=== PATIENT | male | born 1985 | race Caucasian/White ===

== ENCOUNTER 2019-01-25 18:47 | Emergency (ER) | payer MEDICAID ==
[2019-01-25] MEDS ORDERED: Sodium Chloride 0.9% 10 ML Syringe FLUSH PRN (19:23)
[2019-01-25] MEDS ORDERED: Ondansetron 4 MG/2 ML SDV IVPUSH ONE (19:23)
[2019-01-25] MEDS ORDERED: Sodium Chloride 0.9% 1,000 ML IV ONE (19:23)
--- NOTE | 2019-01-25 19:31 | EDM.PDOC ---
ED HPI GENERAL MEDICAL PROBLEM - General Chief Complaint: Abdominal Pain Stated Complaint: Abodominal Pain Time Seen by Provider: 01/25/19 19:16 Source of Information: Reports: Patient History Limitations: Reports: No Limitations - History of Present Illness INITIAL COMMENTS - FREE TEXT/NARRATIVE: Patient comes in with reports of pain to his abdomen for the last 2 hours. He refers to it as sharp and stabbing pain to the mid abdomen. He does state he has a history of constipation. He denies nausea or vomiting. He reports blood in his stool but is not sure if this was from hemorrhoids or not. Medical history includes hepatitis C, meth and heroin use. He has been clean since 2017 per his report and states he does not want to have any narcotics. He does smoke 1 PPD and a bowl of marijuana before bed at night. Denies chest pain, headache, confusion, no shortness of breath. Denies any urinary symptoms. He denies recent illness or chills. He did state he had several bowel movements. Onset: Today, Sudden Duration: Intermittent Location: Reports: Abdomen Quality: Reports: Sharp, Stabbing Worsens with: Reports: Movement Associated Symptoms: Reports: No Other Symptoms - Related Data Allergies Allergy/AdvReac Type Severity Reaction Status Date / Time No Known Allergies Allergy Verified 01/25/19 19:13 Home Meds: Home Meds . [No Known Home Meds] 01/25/19 [History] ED ROS GENERAL - Review of Systems Review Of Systems: See Below Constitutional: Reports: No Symptoms HEENT: Reports: No Symptoms Respiratory: Reports: No Symptoms Cardiovascular: Reports: No Symptoms Endocrine: Reports: No Symptoms GI/Abdominal: Reports: Abdominal Pain : Reports: No Symptoms Musculoskeletal: Reports: No Symptoms Skin: Reports: No Symptoms Neurological: Reports: No Symptoms Psychiatric: Reports: No Symptoms Hematologic/Lymphatic: Reports: No Symptoms Immunologic: Reports: No Symptoms ED EXAM, GI/ABD - Physical Exam Exam: See Below Exam Limited By: No Limitations General Appearance: Alert, WD/WN, Mild Distress Eyes: Bilateral: Normal Appearance, EOMI Ears: Normal TMs Nose: Normal Inspection, Normal Mucosa, No Blood Throat/Mouth: Normal Inspection, Normal Lips, Normal Teeth, Normal Gums, Normal Oropharynx, Normal Voice, No Airway Compromise Head: Atraumatic, Normocephalic Neck: Normal Inspection, Supple, Non-Tender, Full Range of Motion Respiratory/Chest: No Respiratory Distress, Lungs Clear, Normal Breath Sounds, No Accessory Muscle Use, Chest Non-Tender Cardiovascular: Normal Peripheral Pulses, Regular Rate, Rhythm, No Edema, No Gallop, No JVD, No Murmur, No Rub GI/Abdominal Exam: Soft, No Organomegaly, No Distention, No Abnormal Bruit, Tender Back Exam: Normal Inspection, Full Range of Motion, NT Extremities: Normal Inspection, Normal Range of Motion, Non-Tender, Normal Capillary Refill, No Pedal Edema Neurological: Alert, Oriented, CN II-XII Intact, Normal Cognition, Normal Gait, Normal Reflexes, No Motor/Sensory Deficits Psychiatric: Normal Affect, Normal Mood Skin Exam: Warm, Dry, Intact, Normal Color, No Rash Lymphatic: No Adenopathy Course - Orders/Labs/Meds Orders: Active Orders 24 hr Category Date Time Status Abdomen Pelvis w Cont [CT] Stat Exams 01/25/19 19:23 Ordered AMYLASE [CHEM] Stat Lab 01/25/19 19:23 Ordered C-REACTIVE PROTEIN [CHEM] Stat Lab 01/25/19 19:23 Ordered CBC WITH AUTO DIFF [HEME] Stat Lab 01/25/19 19:23 Ordered COMPREHENSIVE METABOLIC PN,CMP [CHEM] Stat Lab 01/25/19 19:23 Ordered MAGNESIUM [CHEM] Stat Lab 01/25/19 19:23 Ordered UA W/MICROSCOPIC [URIN] Stat Lab 01/25/19 19:23 Ordered Ondansetron [Zofran] Med 01/25/19 19:23 Once 4 mg IVPUSH ONETIME ONE Sodium Chloride 0.9% [Normal Saline] 1,000 ml Med 01/25/19 19:23 Ordered IV ONETIME Sodium Chloride 0.9% [Saline Flush] Med 01/25/19 19:23 Ordered 10 ml FLUSH ASDIRECTED PRN Saline Lock Insert [OM.PC] Routine Oth 01/25/19 19:23 Ordered - Radiology Interpretation Free Text/Narrative:: CT shows a non obstructing 3 mm right kidney stone, and proctitis Departure - Departure Time of Disposition: 21:42 Disposition: Home, Self-Care 01 Condition: Good Clinical Impression: Proctitis, Kidney stone on right side - Discharge Information *PRESCRIPTION DRUG MONITORING PROGRAM REVIEWED*: Not Applicable *COPY OF PRESCRIPTION DRUG MONITORING REPORT IN PATIENT NORM: Not Applicable Instructions: Proctitis, Kidney Stones, [id number] Referrals: PCP,None [Primary Care Provider] - Additional Instructions: Plan 1. Follow up with primary care regarding your concerns with Hepatitis C testing 2. You received 250 mg IV rocephin and 1,000 mg Azithromycin oral. We will call if the Gonorrhea and Chlamydia testing comes back positive. Until then you should avoid sexual contact to prevent the spread of disease. 3. Call if you have any further questions or concerns. - My Orders Last 24 Hours: My Active Orders 01/25/19 19:23 Abdomen Pelvis w Cont [CT] Stat AMYLASE [CHEM] Stat C-REACTIVE PROTEIN [CHEM] Stat CBC WITH AUTO DIFF [HEME] Stat COMPREHENSIVE METABOLIC PN,CMP [CHEM] Stat MAGNESIUM [CHEM] Stat UA W/MICROSCOPIC [URIN] Stat Ondansetron [Zofran] 4 mg IVPUSH ONETIME ONE Sodium Chloride 0.9% [Normal Saline] 1,000 ml IV ONETIME Sodium Chloride 0.9% [Saline Flush] 10 ml FLUSH ASDIRECTED PRN Saline Lock Insert [OM.PC] Routine - Assessment/Plan Last 24 Hours: My Active Orders 01/25/19 19:23 Abdomen Pelvis w Cont [CT] Stat AMYLASE [CHEM] Stat C-REACTIVE PROTEIN [CHEM] Stat CBC WITH AUTO DIFF [HEME] Stat COMPREHENSIVE METABOLIC PN,CMP [CHEM] Stat MAGNESIUM [CHEM] Stat UA W/MICROSCOPIC [URIN] Stat Ondansetron [Zofran] 4 mg IVPUSH ONETIME ONE Sodium Chloride 0.9% [Normal Saline] 1,000 ml IV ONETIME Sodium Chloride 0.9% [Saline Flush] 10 ml FLUSH ASDIRECTED PRN Saline Lock Insert [OM.PC] Routine Assessment:: proctitis non obstructing right kidney stone
[2019-01-25 20:03] LABS: CHLORIDE,CL 105 mmol/L (98-107); SODIUM,NA 144 mmol/L (136-145)
[2019-01-25] MEDS ORDERED: Iopamidol 612 MG/ML 100 ML Bottle IVPUSH ONE (20:07)
[2019-01-25 20:11] LABS: ANION GAP 17.4 mmol/L (10-20)
[2019-01-25] MEDS ORDERED: Ketorolac 15 MG/ML SDV IVPUSH ONE (21:09)
[2019-01-25] MEDS ORDERED: cefTRIAXone 500 MG Vial IM ONE (21:13)
[2019-01-25] MEDS ORDERED: Azithromycin 250 MG Tab PO ONE (21:13)
[2019-01-25] MEDS ORDERED: cefTRIAXone 500 MG Vial IVPUSH ONE (21:15)
--- NOTE | 2019-01-26 09:37 | CT ---
[id number] CT/CT Abdomen Pelvis W IV EXAM: CT Abdomen Pelvis W IV CLINICAL DATA: ABDOMINAL PAIN COMPARISON: NO PREVIOUS SIMILAR EXAM IS AVAILABLE. FINDINGS: The liver and spleen are unremarkable. There is minimal right-sided nephrolithiasis. The kidneys and adrenals otherwise show no abnormality. The aorta and pancreas are within normal limits. There is no bowel distention. The appendix and gallbladder are normal. There is no diverticulitis. There is no bowel wall thickening either. There is no free fluid or free air. There is no adenopathy. The pelvis shows no mass, free fluid, abscess, inflammatory change, or adenopathy. IMPRESSION: MINIMAL RIGHT-SIDED NEPHROLITHIASIS. Wiley Prado MD 01/26/19 0936 Thank you for allowing us to participate in the care of your patient.
== END 2019-01-25 21:50 | disposition home or self-care (01) ==
LOC: SUPCPDRO 18:47 → VM.ED 18:47
DX: K62.89 Other specified diseases of anus and rectum (principal); N20.0 Calculus of kidney
CPT/HCPCS: 36415; 74177; 80053; 81001; 82150; 83735; 85025; 86140; 96361; 96374; 96375; 99284-25; A9270-GY; J0696; J1885; J2405; J7030; Q9967

== ENCOUNTER 2019-06-28 00:54 | Emergency (ER) | payer MEDICAID ==
[2019-06-28] MEDS ORDERED: Diphtheria,Pertussis(Acell),Tetanus Vaccine 0.5 ML Syringe IM ONE (01:12)
[2019-06-28] MEDS ORDERED: LORazepam 2 MG/ML SDV IM ONE (01:20)
[2019-06-28] MEDS ORDERED: Morphine 2 MG/ML Syringe IM ONE (01:22)
--- NOTE | 2019-06-28 01:52 | EDM.PDOC ---
ED HPI GENERAL MEDICAL PROBLEM - General Chief Complaint: Lower Extremity Injury/Pain Stated Complaint: nail in foot Time Seen by Provider: 06/28/19 01:09 Source of Information: Reports: Patient History Limitations: Reports: No Limitations - History of Present Illness INITIAL COMMENTS - FREE TEXT/NARRATIVE: Patient at a bonfire and stepped on a board with a nail and it penetrated his foot through the sole of the shoe. He is in considerable pain and has anxiety. No other complaints. He has tried to take it out but was unsuccessful. Right foot. Onset: Today, Sudden Location: Reports: Lower Extremity, Right - Related Data Allergies Allergy/AdvReac Type Severity Reaction Status Date / Time No Known Allergies Allergy Verified 06/28/19 00:55 Home Meds: Home Meds . [No Known Home Meds] 01/25/19 [History] Past Medical History HEENT History: Reports: Otitis Media, Other (See Below) Other HEENT History: Otitis media as a child - Infectious Disease History Infectious Disease History: Reports: Hepatitis C - Past Surgical History HEENT Surgical History: Reports: Tonsillectomy Social & Family History - Tobacco Use Smoking Status *Q: Current Every Day Smoker Years of Tobacco use: 15 Packs/Tins Daily: 1 Review of Systems - Review of Systems Review Of Systems: See Below Constitutional: Reports: No Symptoms Eyes: Reports: No Symptoms Ears: Reports: No Symptoms Nose: Reports: No Symptoms Mouth/Throat: Reports: No Symptoms Respiratory: Reports: No Symptoms Cardiovascular: Reports: No Symptoms GI/Abdominal: Reports: No Symptoms Genitourinary: Reports: No Symptoms Musculoskeletal: Reports: Foot Pain (right) Skin: Reports: Wound (puncture wound) Neurological: Reports: No Symptoms Psychiatric: Reports: No Symptoms ED EXAM, GENERAL - Physical Exam Exam: See Below Exam Limited By: No Limitations General Appearance: Alert, WD/WN, Mild Distress Neurological: Alert, Oriented, CN II-XII Intact Psychiatric: Anxious Skin Exam: Wound/Incision (wound between the first and second metatarsals. Puncture wound) Lymphatic: No Adenopathy ED TRAUMA EXTREMITY PROCEDURES - Foreign Body Removal Indication:: metal nail in bottom of right foot Consent Obtained: Patient Performing Doctor:: Carlos Ren Anesthesia Type: None Complications:: No Comments:: 5 cm nail removed. Nail was in the wood and the shoe, embedded approximately 1 cm. Patient medicated with morphine and ativan, given tetanus immunization. Tolerated without difficulty. Pre and post x-rays obtained. Course - Vital Signs Last Recorded V/S: Last Vital Signs Temp 36.6 C 06/28/19 00:55 Pulse 98 06/28/19 00:55 Resp 20 06/28/19 00:55 BP 154/104 H 06/28/19 00:55 Pulse Ox 99 06/28/19 00:55 - Orders/Labs/Meds Orders: Active Orders 24 hr Category Date Time Status Vaccines to be Administered [RC] PER UNIT ROUTINE Care 06/28/19 01:12 Ordered Foot 2V Rt [CR] Stat Exams 06/28/19 01:17 Ordered Meds: Medications Discontinued Medications Generic Name Dose Route Start Last Admin Trade Name Jayne PRN Reason Stop Dose Admin Diphtheria/Tetanus/Acell Pertussis 0.5 ml 06/28/19 01:12 06/28/19 01:19 Adacel IM 06/28/19 01:13 0.5 ml .ONCE ONE Administration Lorazepam 2 mg 06/28/19 01:20 06/28/19 01:35 Ativan IM 06/28/19 01:21 2 mg ONETIME ONE Administration Morphine Sulfate 2 mg 06/28/19 01:22 06/28/19 01:35 Morphine IM 06/28/19 01:23 2 mg ONETIME ONE Administration Departure - Departure Time of Disposition: 02:09 Disposition: Home, Self-Care 01 Condition: Good Clinical Impression: Foreign body in foot, right - Discharge Information *PRESCRIPTION DRUG MONITORING PROGRAM REVIEWED*: No *COPY OF PRESCRIPTION DRUG MONITORING REPORT IN PATIENT NORM: No Instructions: Hand or Foot Foreign Body, Adult, Amoxicillin; Clavulanic Acid tablets, Probiotics Additional Instructions: Plan 1. Establish care at [facility] for follow up 2. Take all the augmentin to prevent infection 3. If your foot becomes red, swollen, has pus like drainage, red streak or increased pain, you need to be seen immediately to determine if your wound needs to be surgically washed out. No retained material or bone involvement that I could see on x-ray 4. While on the augmentin make sure to eat 1-2 servings of yogurt daily or take probiotics. Do this for the next month to prevent a bacterial infection of the gut that is related to antibiotic use 5. Please call if you have any questions or concerns - Problem List & Annotations (1) Foreign body in foot, right SNOMED Code(s): 962031716 Code(s): S90.851A - SUPERFICIAL FOREIGN BODY, RIGHT FOOT, INITIAL ENCOUNTER Status: Acute Priority: Low Current Visit: Yes Qualifiers: Encounter type: initial encounter Qualified Code(s): S90.851A - Superficial foreign body, right foot, initial encounter - Problem List Review Problem List Initiated/Reviewed/Updated: Yes - My Orders Last 24 Hours: My Active Orders 06/28/19 01:12 Vaccines to be Administered [RC] PER UNIT ROUTINE 06/28/19 01:17 Foot 2V Rt [CR] Stat - Assessment/Plan Last 24 Hours: My Active Orders 06/28/19 01:12 Vaccines to be Administered [RC] PER UNIT ROUTINE 06/28/19 01:17 Foot 2V Rt [CR] Stat Assessment:: foreign body in right foot Plan: Plan 1. Establish care at [facility] for follow up 2. Take all the augmentin to prevent infection 3. If your foot becomes red, swollen, has pus like drainage, red streak or increased pain, you need to be seen immediately to determine if your wound needs to be surgically washed out. No retained material or bone involvement that I could see on x-ray 4. While on the augmentin make sure to eat 1-2 servings of yogurt daily or take probiotics. Do this for the next month to prevent a bacterial infection of the gut that is related to antibiotic use 5. Please call if you have any questions or concerns
[2019-06-28] MEDS ORDERED: Amoxicillin/Clavulanate K 875-125 MG Tab PO ONE (02:03)
--- NOTE | 2019-06-28 07:47 | CR ---
[id number] RAD/RAD Foot Right 2V; [id number] RAD/RAD Foot Right 2V Exam: RAD Foot Right 2V, RAD Foot Right 2V Indication:POST FOREIGN BODY REMOVAL Comparison: No prior imaging for comparison. Discussion: There is a nail extending through patient's shoe into the plantar aspect of the forefoot. No associated fracture. Post foreign body removal demonstrates no retained radiopaque foreign body Impression: Removal of nail from the forefoot. Aníbal Carreno MD 06/28/19 0745 Thank you for allowing us to participate in the care of your patient.
== END 2019-06-28 02:15 | disposition home or self-care (01) ==
LOC: VM.ED 00:54
DX: S91.341A Puncture wound with foreign body, right foot, initial encounter (principal); F17.210 Nicotine dependence, cigarettes, uncomplicated; Z23 Encounter for immunization; W45.0XXA Nail entering through skin, initial encounter
CPT/HCPCS: 28190; 73620; 90471; 90715; 99283; A9270; J2060; J2270; 10160; 28192

== ENCOUNTER 2021-05-24 10:39 | Emergency (ER) | payer OTHER, MEDICAID ==
[2021-05-24] MEDS ORDERED: Ibuprofen 200 MG Tab PO STA (10:47)
--- NOTE | 2021-05-24 10:54 | EDM.PDOC ---
ED HPI GENERAL MEDICAL PROBLEM - General Stated Complaint: HURT ANKLE SKATEBOARDING Time Seen by Provider: 05/24/21 10:47 Source of Information: Reports: Patient History Limitations: Reports: No Limitations - History of Present Illness INITIAL COMMENTS - FREE TEXT/NARRATIVE: Patient comes emergency department today from home with complaints of a right ankle injury. This patient was drinking alcohol last night and riding a skateboard when somehow he fell off injuring his right ankle. He is unsure of how the injury happened specifically as in the mechanisms of twisting or forced to the ankle. He did not hit his head. He has no head neck or back pain. He got up this morning and tried to walk up the steps and he has severe pain in his right ankle. He denies any other injury other than to his right ankle. He has not taken anything for pain. He has no head neck or back pain. Right Ankle Pain Score (Numeric/FACES): 3 - Related Data Allergies Allergy/AdvReac Type Severity Reaction Status Date / Time No Known Allergies Allergy Verified 05/24/21 10:55 Home Meds: Home Meds . [No Known Home Meds] 01/25/19 [History] Past Medical History HEENT History: Reports: Otitis Media, Other (See Below) Other HEENT History: Otitis media as a child - Infectious Disease History Infectious Disease History: Reports: Hepatitis C - Past Surgical History HEENT Surgical History: Reports: Tonsillectomy Review of Systems - Review of Systems Review Of Systems: Comprehensive ROS is negative, except as noted in HPI. ED EXAM, GENERAL - Physical Exam Exam: See Below Exam Limited By: No Limitations General Appearance: Alert, WD/WN, No Apparent Distress Respiratory/Chest: No Respiratory Distress Cardiovascular: Normal Peripheral Pulses GI/Abdominal: Normal Bowel Sounds (Male) Exam: Deferred Rectal (Males) Exam: Deferred Back Exam: Normal Inspection. No: Paraspinal Tenderness, Vertebral Tenderness Extremities: No: Normal Inspection (RLE, medial/lateral malleolus with tenderness and swelling positive talar tilt. NO overt deformity. CMS intact. REst of the extremity is unremarkable. ) Neurological: Alert, Oriented Psychiatric: Normal Affect, Normal Mood Skin Exam: Warm, Dry, Intact, Normal Color, No Rash Course - Vital Signs Last Recorded V/S: Last Vital Signs Temp 98.7 F 05/24/21 10:42 Pulse 109 H 05/24/21 10:42 Resp 18 05/24/21 10:42 BP 138/90 05/24/21 10:42 Pulse Ox 97 05/24/21 10:42 - Orders/Labs/Meds Orders: Active Orders 24 hr Category Date Time Status Ankle Min 3V Rt [CR] Stat Exams 05/24/21 10:47 Taken Meds: Medications Discontinued Medications Generic Name Dose Route Start Last Admin Trade Name Jayne PRN Reason Stop Dose Admin Hydrocodone Bitart/Acetaminophen 1 tab 05/24/21 11:05 Acetaminophen/Hydrocodone 325-5 Mg Tab PO 05/24/21 11:06 ONETIME ONE Ibuprofen 600 mg 05/24/21 10:47 Ibuprofen 200 Mg Tab PO 05/24/21 10:48 NOW STA - Radiology Interpretation Free Text/Narrative:: X-ray initially reviewed extemporaneously by myself. Shows a minimally displaced posterior fibula fracture. Rest of the ankle mortise appears to be intact. Radiological review to follow. - Re-Assessments/Exams Free Text/Narrative Re-Assessment/Exam: 05/24/21 11:16 Ibuprofen [place] X-ray initially reviewed extemporaneously by myself shows a minimally if at all displaced posterior distal fibula fracture. Rest of the ankle mortise is intact. Cam walker given to the patient with much improvement of pain able to ambulate. I reviewed the x-ray results with the patient. Discussed the plan of care to follow-up with primary care in 1 week for repeat x-ray. He is comfortable with this plan his questions were answered. Departure - Departure Time of Disposition: 11:09 Disposition: Home, Self-Care 01 Clinical Impression: Fracture of fibula, distal Qualifiers: Encounter type: initial encounter Fracture type: closed Fracture morphology: unspecified fracture morphology Laterality: right Qualified Code(s): S82.831A - Other fracture of upper and lower end of right fibula, initial encounter for closed fracture - Discharge Information Instructions: Nondisplaced Fibular Ankle Fracture Treated With Immobilization, Adult, Pain Medicine Instructions, [id number], Ankle Fracture, [id number], RICE Therapy for Routine Care of Injuries, [id number] Additional Instructions: Cam walker boot at all times. Okay to take off and shower. Tylenol as needed for pain. May use Ibuprofen as well but try to use sparingly. RICE therapy as per discharge instructions. If pain not controlled with above. [place] 1 tablet every 6 hrs with food as needed for pain. Caution sedation. Rx sent to [facility]. Return to the ED if new or worsening symptoms. Follow up in the clinic with ortho in 1 week for recheck. Call today to make an appointment. Sepsis Event Note (ED) - Focused Exam Vital Signs: Vital Signs Temp Pulse Resp BP Pulse Ox 05/24/21 10:42 98.7 F 109 H 18 138/90 97 - My Orders Last 24 Hours: My Active Orders 05/24/21 10:47 Ankle Min 3V Rt [CR] Stat - Assessment/Plan Last 24 Hours: My Active Orders 05/24/21 10:47 Ankle Min 3V Rt [CR] Stat
[2021-05-24] MEDS ORDERED: Acetaminophen/HYDROcodone 325-5 MG Tab PO ONE (11:05)
--- NOTE | 2021-05-24 11:19 | CR ---
[id number] RAD/RAD Ankle Right 3V Min Exam: RAD Ankle Right 3V Min Indication:SKATE BOARD INJURY LATERAL MALLEOLUS. Comparison: No prior imaging for comparison. Discussion/Impression: Soft tissue swelling over the lateral malleolus. Obliquely orientated nondisplaced fracture the distal fibular metaphysis. There is extension into the distal tibiofibular syndesmosis. No evidence of dislocation or instability. No other fractures. Aníbal Carreno MD 05/24/21 [id number] Thank you for allowing us to participate in the care of your patient.
== END 2021-05-24 11:24 | disposition home or self-care (01) ==
LOC: VM.ED 10:39
DX: S82.831A Other fracture of upper and lower end of right fibula, initial encounter for closed fracture (principal); V00.131A Fall from skateboard, initial encounter; Y93.51 Activity, roller skating (inline) and skateboarding
CPT/HCPCS: 73610-RT; 99283; 99283-25; A9270-GY

== ENCOUNTER 2022-12-25 09:53 | Emergency (ER) | payer MEDICAID ==
[2022-12-25] MEDS ORDERED: cefTRIAXone 2 GM Vial IVPUSH ONE (10:10)
[2022-12-25] MEDS ORDERED: Sodium Chloride 0.9% 1,000 ML IV ONE (10:19)
[2022-12-25 11:02] LABS: ANION GAP 13.9 mmol/L (5-15)
[2022-12-25] MEDS ORDERED: Take Home: Amoxicillin/Clavulanate K 875-125 MG Tab, 2 Tab Pack PO ONE (11:26)
== END 2022-12-25 11:35 | disposition left against medical advice (07) ==
LOC: VM.ED 09:53
DX: S61.452A Open bite of left hand, initial encounter (principal); L03.012 Cellulitis of left finger; Z72.0 Tobacco use; W55.01XA Bitten by cat, initial encounter
CPT/HCPCS: 36415; 80053; 83605; 84145; 85025; 86140; 87040; 96361; 96374; 99283; 99283-25; A9270-GY; J0696; J7030